=== PATIENT | female | born 1950 | race Caucasian/White ===

== ENCOUNTER 2022-08-23 15:06 | Emergency (ER) | payer MEDICARE, BC, SELFPAY ==
--- NOTE | ~2022-08-23 | XR_ITS ---
EXAMINATION: XR tibia fibula RT 2V DATE: 08/23/2022 15:50 INDICATION: Right lower leg dog bite. TECHNIQUE: 2 views of right tibia and fibula were obtained. COMPARISON: None. FINDINGS: Bone alignment is normal. No fracture. There is moderate right knee osteoarthritis. IMPRESSION: 1. No fracture or radiopaque foreign body. Reviewed, dictated and finalized at location A.
[2022-08-23 15:28] VITALS: BP 151/72; PULSE 98; RESP 18; TEMP 36.4; O2SAT 98
--- NOTE | 2022-08-23 15:41 | ED.GENADULT ---
HPI - General Adult General Chief complaint: Animal Bite Stated complaint: dog bite Time Seen by Provider: 08/23/22 15:41 Source: patient Mode of arrival: ambulatory Limitations: no limitations History of Present Illness HPI narrative: This is a 72-year-old female presents the ED with chief complaint of a dog bite injury that occurred just prior to arrival. Patient states that her 2 dogs were getting in a fight and she tried to break them up. One of the dogs then caught her leg and bit the right corral/calf. She reports that her dogs have their rabies vaccinations. She is not up-to-date on tetanus. She denies any further site of pain or injury. Related Data Allergies Allergy/AdvReac Type Severity Reaction Status Date / Time aspirin Allergy Unknown Hives Verified 08/23/22 16:01 erythromycin base Allergy Unknown Nausea and Verified 08/23/22 16:01 Vomiting Sulfa (Sulfonamide Allergy Unknown Hives Verified 08/23/22 16:01 Antibiotics) Exam Narrative: GENERAL: Well-appearing, well-nourished, and in no acute distress. HEAD: Normocephalic, atraumatic. EYES: PERRLA and EOMI. ENT: Nares clear, no rhinorrhea or epistaxis. Mucous membranes moist. Oropharynx without tonsillar hypertrophy exudate or other lesions. NECK: Supple. No adenopathy or masses. CHEST: No respiratory distress. Clear to auscultation. No wheezes rales or rhonchi HEART: Regular rate and rhythm. No murmur heard. Normal peripheral pulses. ABDOMEN: Soft, nontender, nondistended, normal active bowel sounds. MSK: Mild tenderness throughout the right corral. No bruising or deformity. No overt foreign bodies in the lacerations. Neurovascular intact distally. Left lower extremity is benign. SKIN: 2 small linear lacerations noted to the lateral and medial right lower leg. Bleeding controlled. NEURO: Alert and oriented x3. No focal deficits. PSYCH: Normal mood and affect. Course Vital Signs Vital signs: Vital Signs Temperature 97.6 F 08/23/22 15:28 Pulse Rate 98 08/23/22 15:28 Respiratory Rate 18 08/23/22 15:28 Blood Pressure 151/72 H 08/23/22 15:28 Pulse Oximetry 98 08/23/22 15:28 Oxygen Delivery Room Air 08/23/22 15:28 Temperature 97.6 F 08/23/22 15:28 Pulse Rate 98 08/23/22 15:28 Respiratory Rate 18 08/23/22 15:28 Blood Pressure 151/72 H 08/23/22 15:28 Pulse Oximetry 98 08/23/22 15:28 Oxygen Delivery Room Air 08/23/22 15:28 Procedures Laceration Laceration 1: Date: 08/23/22 Time: 16:27 Site: lower extremity Side (If applicable): right Size (cm): 1 Description: linear Depth: simple, single layer Local Anesthetic: none Pre-repair: wound explored and irrigated extensively ====== Skin Level ====== Skin layer closed with: steri strips ====== Subcutaneous Layer ====== ====== Muscle Layer ====== ====== Tendon Layer ====== Dressing: Loose approximation with Steri-Strips. Nonadherent dressing. Laceration 2: Date: 08/23/22 Time: 16:28 Site: lower extremity Side (If applicable): right Size (cm): 1.5 Description: linear Depth: simple, single layer Local Anesthetic: none Pre-repair: wound explored and irrigated extensively ====== Skin Level ====== Skin layer closed with: steri strips ====== Subcutaneous Layer ====== ====== Muscle Layer ====== ====== Tendon Layer ====== Dressing: Loose approximation with Steri-Strips. Nonadherent dressing. Medical Decision Making MDM Narrative Medical decision making narrative: This is a 72-year-old female who presents to the ED with chief complaint of right lower leg dog bite injury occurring just prior to arrival. Vitals are normal. Exam shows 2 lacerations to the right lower leg. Her tetanus was updated. Wounds were well cleaned and irrigated here in the department. Loose
[2022-08-23] MEDS: TETANUS,DIPHTHERIA,AC PERTUSSIS ADULT (0.5 ML) BOOSTRIX IM (16:05)
== END 2022-08-23 16:49 | disposition home or self-care (01) ==
PROVIDERS: Emergency Provider Physician Assistant
DX: S81.851A Open bite, right lower leg, initial encounter (principal); Z23 Encounter for immunization; W54.0XXA Bitten by dog, initial encounter
CPT/HCPCS: 73590; 90471; 90715; 99283